=== PATIENT | female | born 1955 | race Caucasian/White ===

== ENCOUNTER 2022-11-05 18:53 | Emergency (ER) | payer MEDICARE ==
[2022-11-05] MEDS: Lidocaine 1% with EPINEPHrine 1:100,000 50 ML MDV INFILT ONE (19:49)
[2022-11-05] MEDS: Bacitracin Oint 1 GM U/D Packet TOP ONE (19:49)
== END 2022-11-05 19:58 | disposition home or self-care (01) ==
LOC: LB.ED 18:53
DX: S01.81XA Laceration without foreign body of other part of head, initial encounter (principal); W18.30XA Fall on same level, unspecified, initial encounter; W22.8XXA Striking against or struck by other objects, initial encounter
CPT/HCPCS: 12002; 99282